=== PATIENT | female | born 1970 | race Caucasian/White ===

== ENCOUNTER 2016-09-17 12:13 | Day surgery (SDC) | payer OTHER ==
[~2016-09-17] VITALS: Ht 154.9 cm; Wt 56.9 kg
[2016-09-17 13:12] VITALS: Ht 154.9 cm; Wt 56.9 kg
[2016-09-17] MEDS ORDERED: VITAMINS (13:17)
[2016-09-17] MEDS ORDERED: PROTONIX (13:17)
[2016-09-17 13:31] VITALS: BP 122/75; PULSE 79; RESP 18
[2016-09-17] MEDS ORDERED: PROPOFOL 60 ML ONE (13:36)
[2016-09-17] MEDS ORDERED: LIDOCAINE 2% (SDV) 5 ML INJ ONE (13:37)
[2016-09-17 14:55] VITALS: BP 112/76; PULSE 79; RESP 16
--- NOTE | 2016-09-17 16:35 | GILP ---
DATE OF PROCEDURE: 09/17/2016 DATE: 09/17/2016. PROCEDURE PERFORMED: Colonoscopy with polyp ablation. PREMEDICATION: Monitored anesthesia care by anesthesiologist. SURGEON: Adeline Quigley MD. INSTRUMENT USED: Olympus colonoscope. PREPARATION: Adequate. TECHNIQUE: After informed consent, with the patient/relatives understanding the procedure, its indic ations potential risks and complications, including but not limited to: allergic reaction, bleeding, perforation, infection, missed lesions and after all pertinent questions were answered to the patie nt's satisfaction, the patient/relatives signed the witnessed informed consent. Following this, premedication was administered slowly IV push by under careful cardiovascular and re spiratory monitoring with pulse oximetry, automatic blood pressure and monitor worker. Once the sedativ e effect was achieved, the patient was placed in the left lateral decubitus position, digital rectal examination was performed. The colonoscope was then introduced and advanced under visual control th roughout all segments of the colon including: the rectum, sigmoid, descending colon, splenic flexure , transverse colon, hepatic flexure, ascending colon and finally reaching the cecum which was clearl y identified by transillumination, finger indentation and the ileocecal valve. Careful examination o f the mucosa of the lower gastrointestinal tract both on insertion as well as withdrawal of the inst rument disclosed the following findings: Rectal Examination: No evidence of perirectal disease, no masses. Colonic Mucosa: The colonic mucosa is remarkable for a 6 mm sessile polyp in the mid sigmoid colon. The polyp was completely ablated with biopsy forceps. The remainder of the colonic mucosa unremark able. The ileocecal valve and appendiceal orifice were identified and appeared unremarkable. No ad ditional abnormalities are noted with the exception of small internal hemorrhoids. PLAN: The patient will follow up as an outpatient. Pathology will be reviewed as soon as available and surveillance colonoscopy in 5 years is recommended. Annual Hemoccult stool testing is also rec ommended. Dictated By: ADELINE QUIGLEY MS/HANNAH Conf#: [id number] DID#: [id number]
--- NOTE | 2016-09-17 16:52 | GILP ---
DATE OF PROCEDURE: 09/17/2016 PROCEDURE: Esophagogastroduodenoscopy with biopsies. SURGEON: Adeline Quigley MD BRIEF HISTORY AND INDICATION: The patient is being evaluated for abdominal pain and dyspepsia. PREMEDICATION: Monitored anesthesia care by anesthesiologist. INSTRUMENT: Olympus panendoscope. TECHNIQUE: After informed consent, with the patient/relatives understanding the procedure, its indic ations, potential risks and complications, including but not limited to: allergic reaction, bleeding , perforation or infection, and after all pertinent questions were answered to the patients satisfac tion, the patient/relatives signed witnessed informed consent. Following this, premedication was ad ministered slowly IV push under careful cardiovascular and respiratory monitoring with pulse oximetr y, automatic blood pressure and radiation monitor. Once the sedative effect was achieved the patient was place in the left lateral decubitus, the panendoscope was introduced and advanced under visual contr ol. Careful examination of the upper gastrointestinal tract, both on insertion as well as withdrawal of the instrument disclosed the following findings: ESOPHAGUS: The mucosa of the entire esophagus appears within normal limits. There is no evidence of esophagitis, varices, neoplasm or stricture. No hiatal hernia identified. STOMACH: Upon entrance to the stomach air was insufflated, the gastric lambert distended normally. T here is erythema and edema of the mucosa of a moderate degree to severe degree. Biopsies were obtai shawna to rule out H. pylori or infection. PYLORUS: The pylorus appears patent and within normal limits, with no evidence of gastric outlet ob struction. DUODENUM: The duodenal mucosa was carefully examined in the duodenal bulb as well as the second por tion of the duodenum and appears unremarkable with no evidence of duodenitis, ulcer or neoplasm. The instrument was then withdrawn, the patient tolerated the procedure well and was transfer out of the endoscopy suite awake, and in good condition to continue recovery under observation IMPRESSION: Moderate to severe gastritis. Rule out Helicobacter pylori infection. PLAN: The patient will be continued on PPIs. Pathology will be reviewed as soon as available. Fur ther recommendations will depend on the patient's clinical course as well as review of biopsies. Dictated By: ADELINE QUIGLEY MS/NTS Conf#: [id number] DID#: [id number] CC: ADELINE QUIGLEY;*EndCC*
== END 2016-09-17 15:37 | disposition home or self-care (01) ==
LOC: GIL 12:13
PROVIDERS: ATTEND Internal Medicine Gastroenterology
DX: K29.50 Unspecified chronic gastritis without bleeding (principal); B96.81 Helicobacter pylori [H. pylori] as the cause of diseases classified elsewhere; D12.5 Benign neoplasm of sigmoid colon; R19.5 Other fecal abnormalities; Z80.0 Family history of malignant neoplasm of digestive organs
CPT/HCPCS: 84703; 88305; 88312